=== PATIENT | female | born 1985 | race Caucasian/White ===

== ENCOUNTER 2019-07-23 18:31 | Observation (INO) | payer BC ==
[~2019-07-23] VITALS: Ht 149.9 cm; Wt 69.4 kg
== END 2019-07-24 08:20 | disposition home or self-care (01) ==
LOC: SPU 18:31
PROVIDERS: ADMIT Specialist; ATTEND Specialist
DX: O62.9 Abnormality of forces of labor, unspecified (principal); Z3A.37 37 weeks gestation of pregnancy
CPT/HCPCS: 59025; G0378

== ENCOUNTER 2019-07-26 12:23 | Outpatient (CLI) | payer BC, SELFPAY | END 2019-07-26 21:02 | disposition home or self-care (01) | LOC: SLB 12:23 | PROVIDERS: ATTEND Specialist | DX: Z11.59 Encounter for screening for other viral diseases (principal) | CPT/HCPCS: C9803; U0003 ==

== ENCOUNTER 2019-08-02 08:19 | Inpatient (IN) | payer BC ==
[~2019-08-02] VITALS: Ht 149.9 cm; Wt 70.3 kg
[2019-08-02] MEDS ORDERED: LR 1,000 ML IV SCH (08:49)
[2019-08-02] MEDS ORDERED: LR 1,000 ML IV ONE (08:49)
[2019-08-02] MEDS ORDERED: OXYTOCIN/0.9 % SODIUM CHLORIDE 1,000 ML IV SCH (08:49)
[2019-08-02] MEDS ORDERED: TERBUTALINE SULFATE 1 MG/ML VIAL SUBCUT ONE (09:00)
[2019-08-02 09:40] LABS: BASOPHILS % (AUTO) 0.3 % (0.0-2.0); EOSINOPHILS % (AUTO) 0.5 % (0.0-4.0); HEMATOCRIT 32.9 % (36-48); HEMOGLOBIN 11.4 g/dL (12.0-16.0); LYMPHOCYTES # (AUTO) 1.6 K/uL (1.0-5.5); LYMPHOCYTES % (AUTO) 21.4 % (20.5-51.5); MEAN CORPUSCULAR HEMOGLOBIN 33 pg (27-31); MEAN CORPUSCULAR HGB CONC 35 % (32-36); MEAN CORPUSCULAR VOLUME 94 fL (79.0-98.0); MONOCYTES # (AUTO) 0.4 K/uL (0.0-1.0); MONOCYTES % (AUTO) 6.1 % (1.7-9.3); NEUTROPHILS # (AUTO) 5.2 K/uL (1.8-7.7); NEUTROPHILS % (AUTO) 71.7 % (40.0-70.0); PLATELET COUNT (AUTO) 194 K/uL (130-430); RED BLOOD CELL COUNT(AUTO) 3.49 MIL/uL (4.2-6.2); RED CELL DISTRIBUTION WIDTH 14.5 % (9.0-15.0); WHITE BLOOD COUNT (AUTO) 7.3 K/uL (4.8-10.8)
[2019-08-02 11:16] VITALS: BP_SYST 103
[2019-08-02] MEDS ORDERED: LR 500 ML IV ONE (12:24)
[2019-08-02] MEDS ORDERED: FENT2mCg/mL-ROPIVA0.2%/NS EPID 200 ML EP SCH (12:30)
[2019-08-02] MEDS ORDERED: fentaNYL CITRATE/PF 100 MCG/2 ML AMP ONE (13:46)
[2019-08-02] MEDS ORDERED: ROPIVACAINE HCL/PF 0.2% 200 ML ONE (13:46)
[2019-08-03] MEDS ORDERED: IBUPROFEN 600 MG TABLET ONE (00:34)
[2019-08-03] MEDS ORDERED: DOCUSATE SODIUM 100 MG CAPSULE PO ONE (00:35)
[2019-08-03] MEDS ORDERED: OXYTOCIN/0.9 % SODIUM CHLORIDE 1,000 ML IV ONE (00:52)
[2019-08-03] MEDS ORDERED: RHO(D) IMMUNE GLOBULIN/MALTOSE 1500 UNITS/1.3 ML (WINHRO) IM PRN (01:00)
[2019-08-03] MEDS ORDERED: MEASLES,MUMPS&RUBELLA VACC/PF 12500 UNIT/0.5 ML VIAL SUBQ PRN (01:00)
[2019-08-03] MEDS ORDERED: DOCUSATE SODIUM 100 MG CAPSULE PO PRN (01:00)
[2019-08-03] MEDS ORDERED: OXYCODONE/ACETAMINOPHEN 5-325 TABLET PO PRN (01:00)
[2019-08-03] MEDS ORDERED: METHYLERGONOVINE MALEATE 0.2 MG TABLET PO PRN (01:00)
[2019-08-03] MEDS ORDERED: LANOLIN 7 GM OINT. TP PRN (01:00)
[2019-08-03] MEDS ORDERED: DERMOPLAST SPRAY TP PRN (01:00)
[2019-08-03] MEDS ORDERED: DIPH-TET-PERTUS Vaccine 0.5 ML VIAL (ADACEL) I.M. PRN (01:00)
[2019-08-03] MEDS: OXYCODONE/ACETAMINOPHEN 5-325 TABLET PO PRN ×3 (04:55→12:26)
[2019-08-03] MEDS: IBUPROFEN 600 MG TABLET PO SCH ×3 (05:46→17:55)
[2019-08-03] MEDS ORDERED: WITCH HAZEL LEAF 1 MED.PAD MED.PAD TP PRN (21:30)
[2019-08-04] MEDS: IBUPROFEN 600 MG TABLET PO SCH ×3 (00:35→12:32)
[2019-08-04 06:47] LABS: HEMATOCRIT 29.3 % (36-48)
== END 2019-08-04 14:15 | disposition home or self-care (01) | DRG 807 ==
LOC: SPU 08:19
PROVIDERS: ADMIT Specialist; ATTEND Specialist
PROC: 10E0XZZ Delivery of Products of Conception, External Approach (ICD-10-PCS; principal; 2019-08-03)
PROC: 3E0R3BZ Introduction of Anesthetic Agent into Spinal Canal, Percutaneous Approach (ICD-10-PCS; 2019-08-03)
PROC: 00HU33Z Insertion of Infusion Device into Spinal Canal, Percutaneous Approach (ICD-10-PCS; 2019-08-03)
DX: O69.81X0 Labor and delivery complicated by cord around neck, without compression, not applicable or unspecified (principal); Z37.0 Single live birth
CPT/HCPCS: 36415; 85018-TC; 85025; 86592; 86886; 86900; 86901; 90715; J3010; J7120

== ENCOUNTER 2021-06-28 16:40 | Observation (INO) | payer BC ==
[~2021-06-28] VITALS: Ht 149.9 cm; Wt 68.0 kg
[2021-06-28 17:26] LABS: BILIRUBIN,URINE NEGATIVE (NEGATIVE); BLOOD, URINE 1+ (NEGATIVE); CLARITY/URINE CLEAR (CLEAR); COLOR,URINE YELLOW (YELLOW); GLUCOSE,URINE NEGATIVE (NEGATIVE); KETONES,URINE 3+ (NEGATIVE); LEUKOCYTE ESTERASE ,URINE TRACE (NEGATIVE); NITRITE, URINE NEGATIVE (NEGATIVE); PROTEIN URINE 1+ (NEGATIVE); UROBILINOGEN,URINE 0.2 (0.2-1.0)
[2021-06-28 17:35] LABS: BASOPHILS # (AUTO) 0.1 K/uL (0.0-0.2); BASOPHILS % (AUTO) 0.5 % (0.0-2.0); EOSINOPHILS % (AUTO) 0.1 % (0.0-4.0); HEMATOCRIT 37.5 % (36-48); HEMOGLOBIN 13.1 g/dL (12.0-16.0); LYMPHOCYTES # (AUTO) 0.5 K/uL (1.0-5.5); LYMPHOCYTES % (AUTO) 3.5 % (20.5-51.5); MEAN CORPUSCULAR HEMOGLOBIN 33 pg (27-31); MEAN CORPUSCULAR HGB CONC 35 % (32-36); MEAN CORPUSCULAR VOLUME 94 fL (79.0-98.0); MONOCYTES # (AUTO) 0.7 K/uL (0.0-1.0); MONOCYTES % (AUTO) 4.6 % (1.7-9.3); NEUTROPHILS # (AUTO) 13.1 K/uL (1.8-7.7); NEUTROPHILS % (AUTO) 91.3 % (40.0-70.0); PLATELET COUNT (AUTO) 248 K/uL (130-430); RED BLOOD CELL COUNT(AUTO) 3.99 MIL/uL (4.2-6.2); RED CELL DISTRIBUTION WIDTH 12.8 % (9.0-15.0); WHITE BLOOD COUNT (AUTO) 14.4 K/uL (4.8-10.8)
[2021-06-28 17:35] LABS: BACTERIA,URINE FEW /HPF (None Seen); HYALINE CASTS, URINE 0-10 /LPF (None Seen); MUCUS,URINE None Seen /LPF (None Seen); RBC,URINE NONE SEEN /HPF (0-3)
[2021-06-28 17:40] LABS: CALCIUM 8.4 mg/dL (8.4-11.0); CREATININE 0.49 mg/dL (0.55-1.30); POTASSIUM 3.2 mmol/L (3.5-5.1)
[2021-06-28 17:46] LABS: ALBUMIN 3.7 g/dL (3.4-4.8); TOTAL BILIRUBIN 0.5 mg/dL (0.0-1.0)
[2021-06-28] MEDS ORDERED: POTASSIUM CHLORIDE 10 MEQ in 0.45% NACL 1,000 ML IV ONE (18:45)
[2021-06-28] MEDS: ONDANSETRON HCL 4 MG/2 ML VIAL IVP PRN (18:51)
[2021-06-28] MEDS: MEPERIDINE 50 MG/ML VIAL IM PRN (18:53)
[2021-06-28] MEDS ORDERED: KCL 10 mEq in D5/0.45NS 1000mL 1,000 ML IV ONE ×2 (22:28→23:00)
[2021-06-29] MEDS: TEMAZEPAM 15 MG CAPSULE PO PRN (00:59)
[2021-06-29] MEDS: ONDANSETRON HCL 4 MG/2 ML VIAL IVP PRN ×3 (07:50→23:17)
[2021-06-29] MEDS: LR 1,000 ML IV SCH ×2 (07:50→17:40)
[2021-06-29] MEDS ORDERED: ceFAZolin SODIUM 2 GM in D5W 100 ML IV SCH (09:00)
[2021-06-29] MEDS: MEPERIDINE 50 MG/ML VIAL IM PRN (10:45)
[2021-06-29] MEDS: CEFAZOLIN SOD 2 GM in D5W 50 ML IV SCH (17:40)
[2021-06-29] MEDS ORDERED: ACETAMINOPHEN 325 MG TABLET PO PRN (20:45)
[2021-06-29] MEDS ORDERED: PROMETHAZINE HCL/CODEINE 6.25-10 mg/5 mL UDC PO PRN (20:45)
[2021-06-30] MEDS: LR 1,000 ML IV SCH ×2 (01:06→16:50)
[2021-06-30] MEDS: TEMAZEPAM 15 MG CAPSULE PO PRN (01:14)
[2021-06-30] MEDS: CEFAZOLIN SOD 2 GM in D5W 50 ML IV SCH ×3 (01:15→17:10)
[2021-06-30] MEDS: ONDANSETRON HCL 4 MG/2 ML VIAL IVP PRN (09:25)
[2021-06-30] MEDS ORDERED: guaiFENesin 200 MG/CODEINE 20 MG/ 10 ML UDC PO PRN (13:00)
== END 2021-06-30 20:10 | disposition home or self-care (01) ==
LOC: SPU 16:40
PROVIDERS: ADMIT Specialist; ATTEND Specialist
DX: O21.9 Vomiting of pregnancy, unspecified (principal); Z20.822 Contact with and (suspected) exposure to COVID-19; O26.892 Other specified pregnancy related conditions, second trimester; R10.11 Right upper quadrant pain; O36.8120 Decreased fetal movements, second trimester, not applicable or unspecified; Z3A.25 25 weeks gestation of pregnancy
CPT/HCPCS: 36415; 76770; 76805; 80053; 81000; 85025; 87426; 96361 ×2; 96365; 96366 ×2; 96372 ×2; 96375; 96376 ×2; G0378 ×3; G0379; J0690; J2175 ×2; J2405 ×3; J7060 ×2; J3480